=== PATIENT | male | born 1985 | race Hispanic/Latino ===

== ENCOUNTER → 2025-01-17 | Outpatient (CLI) | payer OTHER ==
[~2025-01-17] MED LIST: IOHEXOL 350 MG/ML 100ML INFUS..BTL IV ONE
--- NOTE | 2025-01-18 13:07 | CARDIOLOGY ---
RAD REPORT: [facility] CT ANGIO RADIOLOGY REPORT: CORONARY CT ANGIOGRAPHY DATE: Jan 18, 2025 QUALITY: Excellent CLINICAL HISTORY AND INDICATION: [CAD ] TECHNIQUE: After obtaining a preliminary peoplesoft image, contrast imaging performed on an [employer] [id number] scanner. A dedicated, limited window, coronary imaging protocol was used, with single breath-hold, retrospective ECG gating, and automated arrhythmia rejection. 100 cc of low osmolar contrast agent: Omnipaque 350 was delivered via a 18-gauge IV catheter in the right antecubital fossa, using a power injector and followed by 60 cc of normal saline bolus as a chaser. Collimated images were reformatted at 0.5 mm intervals, and sent to an offline independent workstation for interpretation, using 3D anatomic reconstructions: Curved multiplanar reconstructions, maximum intensity projections, and multiplanar imaging. No metoprolol was administered prior to scanning due to low baseline heart rate. 0.8 mg SL nitroglycerin was given. CORONARY ARTERY DESCRIPTIONS: The coronary arteries arise in normal position. Left main coronary artery: Normal caliber vessel that bifurcates into the LAD and LCx. There is mixed calcified and noncalcified plaque in the distal left main with 20-25% stenosis. Left anterior descending coronary artery: Normal caliber vessel and gives rise to diagonal and septal branches. There is noncalcified plaque in the proximal LAD with 80-90% stenosis. Left circumflex coronary artery: Normal caliber, nondominant and gives rise to a large OM branch. No stenosis. Right coronary artery: Large, dominant vessel giving rise to the PL and PDA branches. There is a drug eluting stent in the mid to distal RCA with severe ISR and non calcified plaque proximal to the most proximal stent strut edge with severe 70-80% stenosis. CAD-RADs: 4, severe stenosis Thoracic Aorta: Normal diameter. Taryn Guido MD Cardiovascular Disease [facility] TARYN GUIDO MD Jan 18, 2025 13:07
== END | disposition home or self-care (01) ==
LOC: RAH 08:44
PROVIDERS: ATTEND Student in an Organized Health Care Education/Training Program
DX: I25.10 Atherosclerotic heart disease of native coronary artery without angina pectoris (principal); R07.9 Chest pain, unspecified
CPT/HCPCS: 75574; Q9967